=== PATIENT | male | born 1975 | race Caucasian/White ===

== ENCOUNTER 2017-07-03 23:12 | Emergency (ER) | payer MEDICARE, MEDICAID ==
[2017-07-03] MEDS ORDERED: CEPHALEXIN 500 MG CAPSULE PO STA (23:42)
--- NOTE | 2017-07-03 23:44 | Emergency Department Record ---
History of Present Illness - General Chief Complaint: Ankle/Foot Injury Stated Complaint: LEFT BIG TOE INGROWN TOENAIL Time Seen by Provider: 07/03/17 23:42 Source: Patient Mode of Arrival: Ambulatory Limitations: No limitations - History of Present Illness Initial Comments: 41 yo male presents to ED with a CC of left great toe pain resulting from a chronic ingrown toe nail. Patient reports that his toe pain increased today as his toe was accidentally kicked by his children today and he is concerned that his tie is infected. Patient reports redness and pain to the medial great toe. Patient reports that he has been taking Vicodin and Tramadol for his pain symptoms at home that he has following several back surgeries. MD Complaint: Other (toe pain) Onset/Timin -: Week(s) Injury: Toes: Left Type of Injury: Blunt, Other Severity: Mild Severity scale (1-10): 6 Worsens With: Nothing Context: Direct blow Treatments Prior to Arrival: Other - Related Data Home Medications Medication Instructions Recorded Confirmed Last Taken Meloxicam 7.5 mg PO QD ml 04/23/16 08/05/16 08/05/16 Previous Rx's Medication Instructions Recorded Cephalexin [Keflex] 500 mg PO QID #27 cap 07/03/17 Allergies Allergy/AdvReac Type Severity Reaction Status Date / Time walnut Allergy ANAPHYLAXIS Verified 07/03/17 23:29 Travel Screening - Travel/Exposure Within Last 30 Days Have you traveled within the last 30 days?: No - Travel/Exposure Within Last Year Have you traveled outside the [place] in the last year?: No - Additonal Travel Details Have you been exposed to anyone with a communicable illness?: No - Travel Symptoms Symptom Screening: None Review of Systems Constitutional: Denies: Chills, Fever, Malaise, Night sweats Eyes: Denies: Eye discharge, Eye pain ENT: Denies: Congestion, Ear pain, Epistaxis Respiratory: Denies: Cough, Dyspnea Cardiovascular: Denies: Chest pain, Dyspnea on exertion Endocrine: Denies: Fatigue, Heat or cold intolerance Gastrointestinal: Denies: Abdominal pain, Nausea, Vomiting Genitourinary: Denies: Incontinence, Retention Musculoskeletal: Reports: Arthralgia (toe pain). Denies: Back pain, Gout, Joint swelling Skin: Reports: Change in color. Denies: Bruising Neurological: Denies: Abnormal gait, Confusion, Headache, Seizure Psychiatric: Denies: Anxiety Hematological/Lymphatic: Denies: Anemia, Blood Clots Past Medical History - SOCIAL HISTORY Smoking Status: Current every day smoker Alcohol Use: None Drug Use: None - RESPIRATORY Hx Respiratory Disorders: No - CARDIOVASCULAR Hx Cardio Disorders: No - NEURO Hx Neuro Disorders: Yes Hx Headaches: Yes Hx Neuropathy: Yes (nerve pain L side) - GI Hx GI Disorders: No - Hx Genitourinary Disorders: No - ENDOCRINE Hx Endocrine Disorders: No - MUSCULOSKELETAL Hx Musculoskeletal Disorders: Yes Hx Back Injury: Yes - PSYCH Hx Psych Problems: Yes Hx Depression: Yes - HEMATOLOGY/ONCOLOGY Hx Hematology/Oncology Disorders: No Family Medical History Any Significant Family History?: Yes Family Hx Comment (NOT TO BE USED IN PLACE OF ITEMS BELOW): mom w/thyroid removal Hx Diabetes: Father Hx Kidney Disease: Father Physical Exam - General General Appearance: Alert, Oriented x3, Cooperative, No acute distress Limitations: No limitations - Head Head exam: Atraumatic, Normocephalic, Normal inspection Head exam detail: negative: Abrasion, Contusion, Valverde's sign, General tenderness, Hematoma, Laceration - Eye Eye exam: Normal appearance. negative: Conjunctival injection, Periorbital swelling, Periorbital tenderness, Scleral icterus - ENT Ear exam: negative: Auricular hematoma, Auricular trauma Nasal Exam: negative: Active bleeding, Discharge, Dried blood, Foreign body Mouth exam: negative: Drooling, Laceration, Muffled voice, Tongue elevation - Neck Neck exam: Normal inspection. negative: Meningismus, Tenderness - Respiratory Respiratory exam: Normal lung sounds bilaterally. negative: Rales, Respiratory distress, Rhonchi - Cardiovascular Cardiovascular Exam: Regular rate, Normal rhythm, Normal heart sounds - GI/Abdominal GI/Abdominal exam: Soft. negative: Rebound, Rigid, Tenderness - Rectal Rectal exam: Deferred - exam: Deferred - Extremities Extremities exam: Tenderness, Other (Ingrown toenail is present to the left great toe medially with mild erythema present medially, no associated abscess is present.). negative: Calf tenderness, Pedal edema - Back Back exam: Denies: CVA tenderness (R), CVA tenderness (L) - Neurological Neurological exam: Alert, Normal gait, Oriented X3 - Psychiatric Psychiatric exam: Normal affect, Normal mood - Skin Skin exam: Normal color. negative: Abrasion Type of lesion: negative: abrasion Course Vital Signs 07/03/17 23:22 Temperature 99.0 F Pulse Rate 107 H Respiratory 20 Rate Blood Pressure 118/85 Pulse Ox 98 - Reevaluation(s) Reevaluation #1: 07/03/17 23:48 Patient is concerned about the possibility of infection to the great toe, will initiate treatment with Keflex with instructions to call Dr. Aceves's office for follow-up as Dr. Aceves is not scheduled in the [facility] specialty clinic this week. Patient reports that he has both Tramadol and Vicodin at home for pain. Disposition Disposition: Discharge Clinical Impression: Ingrown toenail Disposition: Home, Self-Care Condition: (2) Stable Instructions: Ingrown Nail (ED) Additional Instructions: Return to ED if your symptoms worsen or if you have any concerns. Keflex as directed. Follow-up with Dr. Aceves in 3-5 days as directed. Prescriptions: Cephalexin [Keflex] 500 mg PO QID #27 cap Referrals: NU ACEVES [DOCTOR OF [facility]IC[facility]] - Forms: Patient Portal Access Time of Disposition: 23:43 Quality - Quality Measures Quality Measures: N/A - Blood Pressure Screening Blood Pressure Classification: Pre-Hypertensive BP Reading Systolic Measurement: 118 Diastolic Measurement: 85 Screening for High Blood Pressure: < Pre-Hypertensive BP, F/U Documented > [ G8950] Pre-Hypertensive Follow-up Interventions: Referral to alternative/primary care provider.
== END 2017-07-04 00:05 | disposition home or self-care (01) ==
LOC: ER 23:12
DX: L60.0 Ingrowing nail (principal)
CPT/HCPCS: 99283

== ENCOUNTER 2017-09-21 17:06 | Emergency (ER) | payer MEDICARE, MEDICAID ==
--- NOTE | 2017-09-21 17:23 | Emergency Department Record ---
History of Present Illness - General Chief Complaint: Ankle/Foot Injury Stated Complaint: RT FOOT PAIN Time Seen by Provider: 09/21/17 17:16 Source: Patient Mode of Arrival: Wheelchair Limitations: No limitations - History of Present Illness Initial Comments: The patient injured his R foot 20 minutes ago. He was kicking a ball and missed and kicked the ground with his toes. The patient states he heard a "pop" and had immediate pain. He has been unable to walk on it. MD Complaint: Foot injury Onset/Timin -: Minutes(s) Type of Injury: Other Place: Street/outdoors Severity scale (1-10): 9 Improves With: Nothing Worsens With: Weight bearing Context: Other Associated Symptoms: Unable to bear weight - Related Data Allergies Allergy/AdvReac Type Severity Reaction Status Date / Time walnut Allergy ANAPHYLAXIS Verified 07/03/17 23:29 Travel Screening - Travel/Exposure Within Last 30 Days Have you traveled within the last 30 days?: No Review of Systems Constitutional: Denies: Chills, Fever Past Medical History - SOCIAL HISTORY Smoking Status: Current every day smoker Alcohol Use: None Drug Use: None - RESPIRATORY Hx Respiratory Disorders: No - CARDIOVASCULAR Hx Cardio Disorders: No - NEURO Hx Neuro Disorders: Yes Hx Headaches: Yes Hx Neuropathy: Yes (nerve pain L side) - GI Hx GI Disorders: No - Hx Genitourinary Disorders: No - ENDOCRINE Hx Endocrine Disorders: No - MUSCULOSKELETAL Hx Musculoskeletal Disorders: Yes Hx Back Injury: Yes - PSYCH Hx Psych Problems: Yes Hx Depression: Yes - HEMATOLOGY/ONCOLOGY Hx Hematology/Oncology Disorders: No Family Medical History Any Significant Family History?: Yes Family Hx Comment (NOT TO BE USED IN PLACE OF ITEMS BELOW): mom w/thyroid removal Hx Diabetes: Father Hx Kidney Disease: Father Physical Exam - General General Appearance: Alert, Cooperative, Mild distress (due to the foot pain. His HR is elevated due to his pain.) - Head Head exam: Atraumatic, Normocephalic, Normal inspection - Eye Eye exam: Normal appearance, PERRL - Extremities Extremities exam: Normal inspection (There is no swelling or bruising.), Normal capillary refill, Tenderness (There is tenderness to the distal MT bones.), Other (There is no ankle tenderness.). negative: Full ROM (decreased toe flexion and extension due to pain.) Image of Feet: 1 - Location of pain and tenderness. - Neurological Neurological exam: Abnormal gait, Alert. negative: Motor sensory deficit, Normal gait - Skin Skin exam: negative: Rash Course Vital Signs 09/21/17 17:10 Temperature 98.0 F Pulse Rate 125 H Respiratory 18 Rate Blood Pressure 132/97 Pulse Ox 96 - Reevaluation(s) Reevaluation #1: The patient is doing well. I AGAIN offered him pain medicine but he is refusing. I did explain to him the xrays appear normal so we will place him in a post op shoe and have him see his PCP next week if not better. The patient also does not want crutches. 09/21/17 18:00 Medical Decision Making - Data Complexity MDM Data: X-Ray Ordered and/or Reviewed - Radiology Data Radiology results: Report reviewed (R Foot: Neg for fx or dislocation.) Disposition Disposition: Discharge Clinical Impression: Contusion of foot, right Qualifiers: Encounter type: initial encounter Qualified Code(s): S90.31XA - Contusion of right foot, initial encounter Disposition: Home, Self-Care Condition: (1) Good Instructions: Foot Sprain (ED) Additional Instructions: Please wear the post op shoe for 5 days and ice and elevate the R foot when possible for 2 days. Take your home pain medicines as needed. Please see your PCP next week if not better by Tuesday. Return to the ER for any increased pain, swelling, bruising, or fever. Forms: Patient Portal Access Time of Disposition: 18:14 Quality - Quality Measures Quality Measures: N/A - Blood Pressure Screening View Details: Yes Does Patient Have Any of the Following: No Blood Pressure Classification: Hypertensive Reading Systolic Measurement: 132 Diastolic Measurement: 97 Screening for High Blood Pressure: < Pre-Hypertensive BP, F/U Documented > [ G8950] Pre-Hypertensive Follow-up Interventions: Referral to alternative/primary care provider.
--- NOTE | 2017-09-22 14:35 | RADIOLOGY REPORT ---
EXAM: RIGHT FOOT, FOUR VIEWS HISTORY: KICKED THE GROUND WITH RIGHT FOOT, HEARD A CRACKING SOUND, DIFFUSE PAIN. TECHNIQUE: Four views of the right foot were obtained. Comparison: None. Encounter: Initial. FINDINGS: No acute fracture or dislocation. Minimal osteoarthritic change of the right first MTP. IMPRESSION: 1. NEGATIVE FOR ACUTE FRACTURE OF THE RIGHT FOOT. 2. MINIMAL OSTEOARTHRITIC CHANGE OF THE RIGHT FIRST MTP. JOB NUMBER: [id number] MTDD
== END 2017-09-21 18:26 | disposition home or self-care (01) ==
LOC: ER 17:06
DX: S90.31XA Contusion of right foot, initial encounter (principal); W21.00XA Struck by hit or thrown ball, unspecified type, initial encounter; Y92.410 Unspecified street and highway as the place of occurrence of the external cause
CPT/HCPCS: 99283

== ENCOUNTER 2018-02-13 08:40 | Emergency (ER) | payer MEDICAID, MEDICARE ==
[2018-02-13] MEDS ORDERED: 0.9 % SODIUM CHLORIDE 1,000 ML BAG IV ONE (09:04)
[2018-02-13] MEDS ORDERED: DIPHENHYDRAMINE HCL IV 50 MG/ML VIAL IVP ONE (09:04)
[2018-02-13] MEDS ORDERED: METOCLOPRAMIDE HCL 10 MG/2 ML VIAL IVP ONE (09:04)
[2018-02-13] MEDS ORDERED: KETOROLAC 30 MG/ML VIAL IVP ONE (09:04)
--- NOTE | 2018-02-13 09:05 | Emergency Department Record ---
History of Present Illness - General Chief Complaint: Headache Migraine Stated Complaint: HEADACHE Time Seen by Provider: 02/13/18 09:02 Source: Patient Mode of Arrival: Ambulatory Limitations: No limitations - History of Present Illness Initial Comments: The patient is here due to waking up with a migraine ALVES at 6am today. The pain is an occipital throbbing ALVES that has worsened since the onset. He does have mild photophobia with nausea and vomiting. The patient has a long hx of similar issues and problems with exact same ALVES's. He did take his migraine medicines with no relief. MD Complaint: "Migraine" Onset/Timin -: Hour(s) Onset Description: Gradual Location: Left, Occipital Severity scale (1-10): 9 Quality: Throbbing, Similar to previous headaches Consistency: Constant Improves With: Nothing Worsens With: None Associated Symptoms: Nausea, Sensitivity to sound, Vomiting, Other Treatments Prior to Arrival: Migraine medication - Related Data Allergies Allergy/AdvReac Type Severity Reaction Status Date / Time walnut Allergy ANAPHYLAXIS Verified 02/13/18 08:57 Travel Screening - Travel/Exposure Within Last 30 Days Have you traveled within the last 30 days?: No Review of Systems Constitutional: Denies: Chills, Fever Eyes: Denies: Eye discharge ENT: Denies: Congestion Respiratory: Denies: Cough, Dyspnea Past Medical History - SOCIAL HISTORY Smoking Status: Current every day smoker Alcohol Use: None Drug Use: None - RESPIRATORY Hx Respiratory Disorders: No - CARDIOVASCULAR Hx Cardio Disorders: No - NEURO Hx Neuro Disorders: Yes Hx Headaches: Yes Hx Neuropathy: Yes (nerve pain L side) - GI Hx GI Disorders: No - Hx Genitourinary Disorders: No - ENDOCRINE Hx Endocrine Disorders: No - MUSCULOSKELETAL Hx Musculoskeletal Disorders: Yes Hx Back Injury: Yes - PSYCH Hx Psych Problems: Yes Hx Depression: Yes - HEMATOLOGY/ONCOLOGY Hx Hematology/Oncology Disorders: No Family Medical History Any Significant Family History?: Yes Family Hx Comment (NOT TO BE USED IN PLACE OF ITEMS BELOW): mom w/thyroid removal Hx Diabetes: Father Hx Kidney Disease: Father Physical Exam - General General Appearance: Alert, Oriented x3, Cooperative, Mild distress - Head Head exam: Atraumatic, Normocephalic, Normal inspection - Eye Eye exam: Normal appearance, PERRL - Neck Neck exam: Normal inspection, Full ROM. negative: Tenderness - Respiratory Respiratory exam: Normal lung sounds bilaterally. negative: Respiratory distress - Cardiovascular Cardiovascular Exam: Regular rate, Normal rhythm, Normal heart sounds - Extremities Extremities exam: Normal inspection, Full ROM, Normal capillary refill. negative: Tenderness - Neurological Neurological exam: Alert, Normal gait, Oriented X3, Other (Neg Drift and [place]omberg.). negative: Abnormal gait, Motor sensory deficit Course Vital Signs 02/13/18 08:53 Temperature 97.6 F Pulse Rate 60 Respiratory 16 Rate Blood Pressure 127/81 Pulse Ox 96 - Reevaluation(s) Reevaluation #1: The patient is doing much better at this time. His ALVES is completely gone at this time and he is ready for home. 02/13/18 09:53 Disposition Disposition: Discharge Clinical Impression: Migraine Qualifiers: Migraine type: unspecified Status migrainosus presence: without status migrainosus Intractability: not intractable Qualified Code(s): G43.909 - Migraine, unspecified, not intractable, without status migrainosus Disposition: Home, Self-Care Condition: (2) Stable Instructions: Migraine Headache (ED) Additional Instructions: Please continue your regular medicines. Please see your family doctor if not better. Return to the ER for any worsening pain, fever, or vomiting. Forms: Patient Portal Access Time of Disposition: 09:51 Quality - Quality Measures Quality Measures: N/A - Blood Pressure Screening View Details: Yes Does Patient Have Any of the Following: No Blood Pressure Classification: Pre-Hypertensive BP Reading Systolic Measurement: 127 Diastolic Measurement: 81 Screening for High Blood Pressure: < Pre-Hypertensive BP, F/U Documented > [ G8950] Pre-Hypertensive Follow-up Interventions: Referral to alternative/primary care provider.
== END 2018-02-13 10:00 | disposition home or self-care (01) ==
LOC: ER 08:40
DX: G43.909 Migraine, unspecified, not intractable, without status migrainosus (principal); R11.2 Nausea with vomiting, unspecified; H53.149 Visual discomfort, unspecified; F17.210 Nicotine dependence, cigarettes, uncomplicated
CPT/HCPCS: 99284 ×2; 96374; 96375; J1885; J1200; J2765; J7030

== ENCOUNTER 2018-03-23 07:36 | Emergency (ER) | payer MEDICARE ==
--- NOTE | 2018-03-23 07:55 | Emergency Department Record ---
History of Present Illness - General Chief Complaint: Headache Migraine Stated Complaint: MIGRAINE Time Seen by Provider: 03/23/18 07:47 Source: Patient Mode of Arrival: Ambulatory Limitations: No limitations - History of Present Illness Initial Comments: The patient is here due to waking up with a typical migraine ALVES 3 hours ago. The pain is L sided and throbbing and is associated with nausea and photophobia. He denies any weakness or numbness or any balance issues. The patient has a long hx of similar ALVES's exactly like this. He did take his chronic migraine medicines but they did not help. MD Complaint: "Migraine" Onset/Timin -: Hour(s) Onset Description: Awoke with symptoms Location: Left, Neck Severity scale (1-10): 9 Quality: Aching, Throbbing, Similar to previous headaches Consistency: Constant Improves With: Nothing Worsens With: None Associated Symptoms: Photophobia, Sensitivity to sound, Other - Related Data Allergies Allergy/AdvReac Type Severity Reaction Status Date / Time walnut Allergy ANAPHYLAXIS Verified 02/13/18 08:57 Travel Screening - Travel/Exposure Within Last 30 Days Have you traveled within the last 30 days?: No - Travel/Exposure Within Last Year Have you traveled outside the [place] in the last year?: No - Additonal Travel Details Have you been exposed to anyone with a communicable illness?: No - Travel Symptoms Symptom Screening: None Review of Systems Constitutional: Denies: Chills, Fever Eyes: Denies: Eye discharge ENT: Denies: Congestion Respiratory: Denies: Cough, Dyspnea Past Medical History - SOCIAL HISTORY Smoking Status: Former smoker Alcohol Use: None Drug Use: None - RESPIRATORY Hx Respiratory Disorders: No - CARDIOVASCULAR Hx Cardio Disorders: No - NEURO Hx Neuro Disorders: Yes Hx Headaches: Yes Hx Neuropathy: Yes (nerve pain L side) - GI Hx GI Disorders: No - Hx Genitourinary Disorders: No - ENDOCRINE Hx Endocrine Disorders: No - MUSCULOSKELETAL Hx Musculoskeletal Disorders: Yes Hx Back Injury: Yes - PSYCH Hx Psych Problems: Yes Hx Depression: Yes - HEMATOLOGY/ONCOLOGY Hx Hematology/Oncology Disorders: No Family Medical History Any Significant Family History?: No Family Hx Comment (NOT TO BE USED IN PLACE OF ITEMS BELOW): mom w/thyroid removal Hx Diabetes: Father Hx Kidney Disease: Father Physical Exam - General General Appearance: Alert, Oriented x3, Cooperative, Mild distress (due to the ALVES.) - Head Head exam: Atraumatic, Normocephalic - Eye Eye exam: Normal appearance, PERRL - ENT ENT exam: Normal exam, Mucous membranes moist, Normal external ear exam, Normal orophraynx, TM's normal bilaterally - Neck Neck exam: Normal inspection, Full ROM. negative: Meningismus, Tenderness - Respiratory Respiratory exam: Normal lung sounds bilaterally. negative: Respiratory distress - Cardiovascular Cardiovascular Exam: Regular rate, Normal rhythm, Normal heart sounds - GI/Abdominal GI/Abdominal exam: Soft, Normal bowel sounds. negative: Tenderness - Extremities Extremities exam: Normal inspection, Full ROM, Normal capillary refill. negative: Tenderness - Neurological Neurological exam: Alert, Normal gait, Oriented X3. negative: Abnormal gait, Altered, Motor sensory deficit - Psychiatric Psychiatric exam: negative: Anxious Course Vital Signs 03/23/18 07:40 Temperature 98.0 F Pulse Rate 83 Respiratory 18 Rate Blood Pressure 150/92 Pulse Ox 98 - Reevaluation(s) Reevaluation #1: The patient is doing a lot better at this time. His pain has completely resolved. He is ready to go. 03/23/18 08:37 Disposition Disposition: Discharge Clinical Impression: Migraine Qualifiers: Migraine type: unspecified Status migrainosus presence: without status migrainosus Intractability: not intractable Qualified Code(s): G43.909 - Migraine, unspecified, not intractable, without status migrainosus Disposition: Home, Self-Care Condition: (2) Stable Instructions: Migraine Headache (ED) Additional Instructions: Please continue your regular medicines. Please see your family doctor if not better tomorrow and return to the ER for any worsening symptoms. Forms: Patient Portal Access Time of Disposition: 08:39 Quality - Quality Measures Quality Measures: Headache (All Ages) - Headache: Neuroimaging Quality Measure: Measure #419: Overuse of Neuroimaging ICD10 Codes Entered: Yes View Detail: Yes Neurological Exam: Patient had a normal neurological exam. [G9535] Headache: Use of Neuroimaging: < CTA, CT, MRA or MRI was NOT ordered > [G9534] - Blood Pressure Screening View Details: Yes Does Patient Have Any of the Following: No Blood Pressure Classification: Hypertensive Reading Systolic Measurement: 126 Diastolic Measurement: 99 Screening for High Blood Pressure: < First Hypertensive BP, F/U Documented > [ G8950] First Hypertensive Follow-up Interventions: Referral to alternative/primary care provider.
[2018-03-23] MEDS: 0.9 % SODIUM CHLORIDE 1,000 ML BAG IV ONE (08:04)
[2018-03-23] MEDS: DIPHENHYDRAMINE HCL 50 MG/ML VIAL IVP ONE (08:04)
[2018-03-23] MEDS: METOCLOPRAMIDE HCL 10 MG/2 ML VIAL IVP ONE (08:04)
[2018-03-23] MEDS: KETOROLAC 30 MG/ML VIAL IVP ONE (08:04)
== END 2018-03-23 08:44 | disposition home or self-care (01) ==
LOC: ER 07:36
DX: G43.909 Migraine, unspecified, not intractable, without status migrainosus (principal); R11.0 Nausea; H53.149 Visual discomfort, unspecified
CPT/HCPCS: 99284 ×2; 96374; 96375; J1885; J1200; J2765; J7030